=== PATIENT | female | born 1980 | race Caucasian/White ===

== ENCOUNTER 2018-11-21 23:03 | Emergency (ER) | payer OTHER ==
--- NOTE | 2018-11-22 02:23 | EDM.PDOC ---
ED HPI GENERAL MEDICAL PROBLEM - General Chief Complaint: Chest Pain Stated Complaint: [facility] Time Seen by Provider: 11/22/18 02:05 Source of Information: Reports: Patient, Family (), RN Notes Reviewed History Limitations: Reports: No Limitations - History of Present Illness INITIAL COMMENTS - FREE TEXT/NARRATIVE: The patient states that she was sitting on her couch, watching television around 22:00, when she developed central chest tightness, as well as an ache felt to the lateral underside of her left breast, and down both arms. She also describes a sensation felt across her entire anterior chest as a burning and tingling sensation. All of the discomfort came and went. The patient felt lightheaded and dyspneic, as well as tightness in her throat and cheeks. She had no nausea or vomiting. She felt diaphoretic and anxious. She also felt like her legs were made of rubber. All of these sensations were felt at the same time. Total duration for all of them was about 2 hours. The patient states that she took half a milligram of Ativan around 22:00. The patient states that she has had similar, although not as severe, symptoms in the past, due to anxiety. She states that she experiences such symptoms about twice a week for the past 6 years. Her anxiety is treated with daily Lexapro and prn Ativan. The patient's PCP is Yarely Castañeda NP. Chest Pain Score (Numeric/FACES): 3 - Related Data Allergies Allergy/AdvReac Type Severity Reaction Status Date / Time acetaminophen [From [place]] Allergy Hives Verified 11/21/18 23:15 hydrocodone [From [place]] Allergy Hives Verified 11/21/18 23:15 Home Meds: Home Meds Orphenadrine [Norflex] 1 tab PO Q12H PRN #14 tab.er 11/22/18 [Rx] Past Medical History Cardiovascular History: Reports: Hypertension RN FACULTY History: Reports: Psychiatric History: Reports: Anxiety Endocrine/Metabolic History: Reports: Obesity/BMI 30+ - Past Surgical History HEENT Surgical History: Reports: Oral Surgery (wisdom teeth extraction) GI Surgical History: Reports: Cholecystectomy (2011) Female Surgical History: Reports: LEEP Musculoskeletal Surgical History: Reports: Carpal Tunnel Social & Family History - Tobacco Use Smoking Status *Q: Former Smoker Years of Tobacco use: 10 Packs/Tins Daily: 1 Month/Year Tobacco Last Used: Quit 2009 - Caffeine Use Caffeine Use: Reports: Coffee - Alcohol Use Alcohol Use History: Yes Alcohol Use Frequency: Rarely - Recreational Drug Use Recreational Drug Use: Yes Drug Use in Last 12 Months: No Recreational Drug Type: Reports: Marijuana/Hashish (smoked in HS) - Living Situation & Occupation Living situation: Reports: , with Spouse, with Family (4 kids) Occupation: Unemployed ED ROS GENERAL - Review of Systems Review Of Systems: ROS reveals no pertinent complaints other than HPI. ED EXAM, GENERAL - Physical Exam Exam: See Below Exam Limited By: No Limitations General Appearance: Alert, WD/WN, No Apparent Distress, Anxious Eye Exam: Bilateral Eye: EOMI, Normal Inspection Ears: Normal External Exam, Hearing Grossly Normal Nose: Normal Inspection Throat/Mouth: Normal Inspection, Normal Lips, Normal Voice, No Airway Compromise Head: Atraumatic, Normocephalic Neck: Normal Inspection, Full Range of Motion Respiratory/Chest: No Respiratory Distress, Lungs Clear, Normal Breath Sounds, No Accessory Muscle Use Cardiovascular: Normal Peripheral Pulses, Regular Rate, Rhythm, No Gallop, No JVD, No Murmur, No Rub Peripheral Pulses: 4+: Radial (L), Radial (R) GI/Abdominal: Normal Bowel Sounds, Soft, Non-Tender, No Organomegaly, No Distention, No Abnormal Bruit, No Mass, Other (Obese) (Female) Exam: Deferred Rectal (Female) Exam: Deferred Back Exam: Normal Inspection, Full Range of Motion, NT Extremities: Normal Inspection, Normal Range of Motion, No Pedal Edema, Normal Capillary Refill Neurological: Alert, Oriented, CN II-XII Intact, Normal Cognition, No Motor/ Sensory Deficits Psychiatric: Anxious Skin Exam: Warm, Dry, Intact, Normal Color, No Rash EKG INTERPRETATION EKG Date: 11/21/18 Time: 23:21 Rhythm: NSR Rate (Beats/Min): 85 [place]: Normal P-Wave: Enlarged (LAE) QRS: Other (LVH) ST-T: Normal QT: Normal Comparison: NA - No Prior EKG Course - Vital Signs Last Recorded V/S: Last Vital Signs Temp 36.6 C 11/21/18 23:09 Pulse 81 11/21/18 23:09 Resp 16 11/21/18 23:09 BP 195/96 H 11/21/18 23:09 Pulse Ox 99 11/21/18 23:09 Orthostatic Blood Pressure [ 167/110 Standing] Orthostatic Blood Pressure [ 167/92 Supine] - Orders/Labs/Meds Labs: Laboratory Tests 11/21/18 11/21/18 11/21/18 Range/Units 22:30 23:30 23:30 WBC 9.49 (3.98-10.04) K/mm3 RBC 4.62 (3.98-5.22) M/mm3 Hgb 14.4 (11.2-15.7) gm/L Hct 39.6 (34.1-44.9) % MCV 85.7 (79.4-94.8) fl MCH 31.2 (25.6-32.2) pg MCHC 36.4 H (32.2-35.5) g/dl RDW Std Deviation 40.9 (36.4-46.3) fL Plt Count 319 (182-369) K/mm3 MPV 9.2 L (9.4-12.3) fl Neut % (Auto) 50.9 (34.0-71.1) % Lymph % (Auto) 38.4 (19.3-51.7) % [place] % (Auto) 8.1 (4.7-12.5) % Eos % (Auto) 2.1 (0.7-5.8) Baso % (Auto) 0.3 (0.1-1.2) % Neut # (Auto) 4.83 (1.56-6.13) K/mm3 Lymph # (Auto) 3.64 (1.18-3.74) K/mm3 [place] # (Auto) 0.77 H (0.24-0.36) K/mm3 Eos # (Auto) 0.20 (0.04-0.36) K/mm3 Baso # (Auto) 0.03 (0.01-0.08) K/mm3 D-Dimer, Quantitative 0.29 (0.19-0.50) mg/L Sodium 137 (136-145) mEq/L Potassium 3.4 L (3.5-5.1) mEq/L Chloride 101 (98-107) mEq/L Carbon Dioxide 25 (21-32) mEq/L Anion Gap 14.4 (5-15) BUN 14 (7-18) mg/dL Creatinine 0.9 (0.55-1.02) mg/dL Est Cr Clr Drug Dosing 84.03 mL/min Estimated GFR (MDRD) > 60 (>60) mL/min BUN/Creatinine Ratio 15.6 (14-18) Glucose 114 H (74-106) mg/dL Calcium 8.9 (8.5-10.1) mg/dL Total Bilirubin 0.4 (0.2-1.0) mg/dL AST 31 (15-37) U/L ALT 65 H (14-59) U/L Alkaline Phosphatase 81 (46-116) U/L CK-MB (CK-2) 1.3 (0-3.6) ng/ml Troponin I < 0.017 (0.00-0.056) ng/mL Total Protein 7.6 (6.4-8.2) g/dl Albumin 4.3 (3.4-5.0) g/dl Globulin 3.3 gm/dL Albumin/Globulin Ratio 1.3 (1-2) TSH 3rd Generation (0.358-3.74) uIU/mL 11/22/18 Range/Units 02:19 WBC (3.98-10.04) K/mm3 RBC (3.98-5.22) M/mm3 Hgb (11.2-15.7) gm/L Hct (34.1-44.9) % MCV (79.4-94.8) fl MCH (25.6-32.2) pg MCHC (32.2-35.5) g/dl RDW Std Deviation (36.4-46.3) fL Plt Count (182-369) K/mm3 MPV (9.4-12.3) fl Neut % (Auto) (34.0-71.1) % Lymph % (Auto) (19.3-51.7) % [place] % (Auto) (4.7-12.5) % Eos % (Auto) (0.7-5.8) Baso % (Auto) (0.1-1.2) % Neut # (Auto) (1.56-6.13) K/mm3 Lymph # (Auto) (1.18-3.74) K/mm3 [place] # (Auto) (0.24-0.36) K/mm3 Eos # (Auto) (0.04-0.36) K/mm3 Baso # (Auto) (0.01-0.08) K/mm3 D-Dimer, Quantitative (0.19-0.50) mg/L Sodium (136-145) mEq/L Potassium (3.5-5.1) mEq/L Chloride (98-107) mEq/L Carbon Dioxide (21-32) mEq/L Anion Gap (5-15) BUN (7-18) mg/dL Creatinine (0.55-1.02) mg/dL Est Cr Clr Drug Dosing mL/min Estimated GFR (MDRD) (>60) mL/min BUN/Creatinine Ratio (14-18) Glucose (74-106) mg/dL Calcium (8.5-10.1) mg/dL Total Bilirubin (0.2-1.0) mg/dL AST (15-37) U/L ALT (14-59) U/L Alkaline Phosphatase (46-116) U/L CK-MB (CK-2) (0-3.6) ng/ml Troponin I (0.00-0.056) ng/mL Total Protein (6.4-8.2) g/dl Albumin (3.4-5.0) g/dl Globulin gm/dL Albumin/Globulin Ratio (1-2) TSH 3rd Generation 7.309 H (0.358-3.74) uIU/mL Meds: Medications Discontinued Medications Generic Name Dose Route Start Last Admin Trade Name Freq PRN Reason Stop Dose Admin Orphenadrine Citrate 100 mg 11/22/18 03:11 11/22/18 03:30 Norflex PO 11/22/18 03:12 100 mg ONETIME STA Administration - Re-Assessments/Exams Free Text/Narrative Re-Assessment/Exam: 11/22/18 02:21 Portable chest radiograph appears to be grossly normal. The cardiac silhouette is within normal limits. There is no pulmonary vascular congestion. No pleural effusions seen on this AP view. No focal infiltrate. No pneumothorax. Formal read per the Radiologist pending. The patient's history is consistent with her having experienced hyperventilation syndrome earlier tonight, although she is no longer hyperventilating, therefore I cannot prove that that's what her symptoms were due to. The workup that was ordered by the triage nurse, including a CBC, CMP, troponin, CK-MB, portable chest x-ray, and ECG, are all unremarkable. I have added a D-dimer, TSH, and orthostatics to her workup. If these are negative, I will give the patient a diagnosis of hyperventilation syndrome, with the caveat that it is based on suspicion, not proven. 11/22/18 02:31 The patient is not orthostatic. 11/22/18 03:07 The patient's D-dimer is within normal limits. Her TSH is elevated at 7.309, indicating hypothyroidism. 11/22/18 03:12 Test results discussed with the patient and her . As above, the constellation of the patient's symptoms indicate that she was suffering from hyperventilation syndrome earlier. No medical abnormalities were found tonight, other than her TSH being elevated, indicating that she may be hypothyroid. While hyperthyroidism can, in theory, leading to hyperventilation, hypothyroidism cannot. In that regard, I'm recommending that she follow-up with her PCP to not only have her TSH rechecked, but also to consider modification of her current dosage of Lexapro. The patient stated that she is still having difficulty lying back, because it causes her to have left-sided chest pain. She may be suffering from a muscle spasm. She will be started on Norflex, and I will prescribe additional. In addition, I am recommending that she take [id number] ibuprofen. Departure - Departure Time of Disposition: 03:13 Disposition: Home, Self-Care 01 Condition: Good Clinical Impression: Hyperventilation syndrome, Elevated TSH, Muscle spasm - Discharge Information *PRESCRIPTION DRUG MONITORING PROGRAM REVIEWED*: Not Applicable *COPY OF PRESCRIPTION DRUG MONITORING REPORT IN PATIENT ENRIQUE: Not Applicable Prescriptions: Orphenadrine [Norflex] 1 tab PO Q12H PRN #14 tab.er PRN Reason: Muscle Spasm Instructions: Thyroid-Stimulating Hormone Test, Muscle Cramps and Spasms, Easy- to-Read, Hyperventilation Referrals: Yarely Castañeda MD [Primary Care Provider] - Forms: ED Department Discharge Additional Instructions: You were seen in the emergency room for sudden onset symptoms of central chest tightness, with pain felt under her left breast and a burning tingling sensation felt across her chest and down both arms, lightheadedness, shortness of breath, tightness in your throat and cheeks, sweatiness, anxiety, and a feeling of walking on rubber legs. Workup in the ER included blood work, a chest x-ray, positional blood pressure checks, and an ECG. Your TSH was found to be elevated, indicating that you may be hypothyroid. This needs to be rechecked. The remainder of your workup was unremarkable. Based on your history, physical exam, and ER tests, the symptoms that you experienced at home were most likely due to hyperventilation syndrome, due to anxiety. We recommend that you follow-up with your PCP, Yarely Castañeda NP, to not only have your thyroid level rechecked, but to discuss possible modification of your antianxiety medicine, Lexapro. You have been started on the muscle relaxant Norflex. A prescription for Norflex has been [facility] to [facility], located in [facility] across the street from the hospital. Take one tablet of Norflex every 12 hours, starting this evening, Wednesday, 2018, as prescribed. In addition to Norflex, you may also take [id number] ibuprofen, 2-3 tablets (400-600 mg) every 8 hours, with food, as needed for discomfort. If any other problems, please do not hesitate to return to the ER.
[2018-11-22] MEDS ORDERED: Orphenadrine 100 MG Tab.ER PO STA (03:11)
--- NOTE | 2018-11-22 07:20 | CR ---
Chest: Frontal view of the chest was obtained. Comparison: No prior chest x-ray. Heart size and mediastinum are normal. Lungs are clear with no acute parenchymal change. Bony structures are grossly intact. Impression: 1. Nothing acute is seen in frontal chest x-ray. Diagnostic code #1
== END 2018-11-22 03:32 | disposition home or self-care (01) ==
LOC: JD.ED 23:03
DX: F45.8 Other somatoform disorders (principal); M62.838 Other muscle spasm; R94.6 Abnormal results of thyroid function studies; I10 Essential (primary) hypertension; Z88.5 Allergy status to narcotic agent; E66.9 Obesity, unspecified; Z90.49 Acquired absence of other specified parts of digestive tract; Z98.890 Other specified postprocedural states; Z87.891 Personal history of nicotine dependence; Z68.39 Body mass index [BMI] 39.0-39.9, adult
CPT/HCPCS: 36415; 71045; 80053; 82553; 84443; 84484; 85025; 85379; 93005; 99285; A9270; 93010; 99284

== ENCOUNTER 2019-07-13 12:08 | Emergency (ER) | payer BC, OTHER ==
[2019-07-13] MEDS ORDERED: Dextrose 5%-0.9% NaCl 1,000 ML IV SCH (12:30)
[2019-07-13] MEDS ORDERED: Acetaminophen 325 MG Tab PO ONE (12:31)
--- NOTE | 2019-07-13 12:34 | EDM.PDOC ---
ED HPI GENERAL MEDICAL PROBLEM - General Chief Complaint: General Stated Complaint: FEVER/CHILLS/BODYACHE Time Seen by Provider: 07/13/19 12:19 Source of Information: Reports: Patient History Limitations: Reports: No Limitations - History of Present Illness INITIAL COMMENTS - FREE TEXT/NARRATIVE: 39-year-old female presents to the ED with persistent high fever generalized body aches, headache, loss of appetite since July 09. Was seen the same day of illness and influenza screen proved to be negative. She is having marked difficulty controlling the temperature even taking Tylenol and Motrin in alternating fashion all day yesterday. Harsh paroxysmal productive cough is disrupting her sleep. She has no appetite feels very lightheaded dizzy when standing. Has weakness. She did initially have some diarrhea and vomiting the first day of illness. Her who is with her is not ill at all. Does not have a history of asthma or pulmonary problems. Last dose of Motrin was taken about 0 to 30 hours this morning. Onset: Sudden Onset Date: 07/09/19 Duration: Day(s):, Constant (Persistent high fever which is been very difficult to control.), Getting Worse Location: Reports: Generalized (Neurolyse myalgia with headache and paroxysmal cough and loss of appetite.) Quality: Reports: Ache (Neurolysed body aching.) Severity: Moderate (8 out of 10) Improves with: Reports: None Worsens with: Reports: None Context: Reports: Other (Spontaneous occurrence). Denies: Activity, Exercise, Lifting, Sick Contact, Trauma Associated Symptoms: Reports: Chest Pain (Central chest pain from coughing so much. She believes she has had some post ), Cough (tussive emesis as well.), cough w sputum, Diaphoresis (Very little sputum production.), Fever/Chills, Headaches, Loss of Appetite, Malaise, Nausea/Vomiting, Shortness of Breath, Weakness (Post tussive vomiting). 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: Psychiatric History: Reports: Anxiety Endocrine/Metabolic History: Reports: Obesity/BMI 30+ - Past Surgical History HEENT Surgical History: Reports: Oral Surgery GI Surgical History: Reports: Cholecystectomy Female Surgical History: Reports: LEEP Musculoskeletal Surgical History: Reports: Carpal Tunnel Social & Family History - Caffeine Use Caffeine Use: Reports: Coffee - Living Situation & Occupation Living situation: Reports: , with Spouse, with Family (4 kids) Occupation: Unemployed ED ROS GENERAL - Review of Systems Review Of Systems: See Below Constitutional: Reports: Fever, Chills, Malaise, Weakness, Fatigue, Decreased Appetite HEENT: Reports: No Symptoms Respiratory: Reports: Shortness of Breath, Cough. Denies: Sputum, Hemoptysis, Other Cardiovascular: Reports: Chest Pain (Upper central chest pain from coughing), Dyspnea on Exertion, Lightheadedness. Denies: Blood Pressure Problem, Claudication, Edema, Orthopnea Endocrine: Reports: Fatigue GI/Abdominal: Reports: Decreased Appetite, Vomiting (Posttussive emesis on a few occasions). Denies: Abdominal Pain, Difficulty Swallowing, Distension, Flatus, Hematemesis, Hematochezia, Melena : Reports: Other (Decreased urine output i.e. mild frequency with small quantities of urine.) Musculoskeletal: Reports: Muscle Pain Skin: Reports: No Symptoms (Generalized myalgia) Neurological: Reports: Dizziness (Dizziness and lightheadedness with standing), Weakness. Denies: Tremors, Trouble Speaking, Difficulty Walking, Change in Speech Psychiatric: Reports: No Symptoms Hematologic/Lymphatic: Reports: No Symptoms Immunologic: Reports: No Symptoms ED EXAM, GENERAL - Physical Exam Exam: See Below Exam Limited By: No Limitations General Appearance: Alert, WD/WN, Mild Distress, Other (Patient is very warm to palpation. She feels warmer than nurses temperature of 37.3 degrees. Heart rate is 114 at the bedside. Respiratory is 20 with O2 sats of only 94% on room air. BP is elevated at 169/94.) Eye Exam: Bilateral Eye: Normal Inspection Ears: Normal TMs Throat/Mouth: Normal Inspection, Normal Lips, Normal Teeth, Normal Oropharynx, Other Head: Atraumatic, Normocephalic Neck: Normal Inspection, Supple, Non-Tender, Full Range of Motion. No: Carotid Bruit, Lymphadenopathy (L), Lymphadenopathy (R) Respiratory/Chest: No Accessory Muscle Use, Respiratory Distress (Mild tachypnea at rest.), Rhonchi (Faint rhonchi throughout the anterior upper lobe on the right side as well as posterior upper and lower lobes. This is different than on the left side which is clear). No: Lungs Clear, Normal Breath Sounds, Crackles, Rales Cardiovascular: Normal Peripheral Pulses, No Edema, No Gallop, No Murmur, No Rub , Tachycardia (Cardiac arrest 115/min.) Peripheral Pulses: 3+: Carotid (L), Carotid (R), Posterior Tibial (L), Posterior Tibial (R), Dorsalis Pedis (L), Dorsalis Pedis (R) GI/Abdominal: Normal Bowel Sounds, Soft, Non-Tender, No Organomegaly, No Abnormal Bruit, No Mass, Pelvis Stable, Other (Mildly obese.) Back Exam: Normal Inspection, Full Range of Motion. No: CVA Tenderness (L), CVA Tenderness (R) Extremities: Normal Inspection, Normal Range of Motion, Non-Tender, No Pedal Edema Neurological: Alert, Oriented, CN II-XII Intact, Normal Cognition, No Motor/ Sensory Deficits Psychiatric: Normal Affect, Normal Mood Skin Exam: Warm, Dry, Intact, Normal Color, No Rash Course - Vital Signs Last Recorded V/S: Last Vital Signs Temp 37.3 C 07/13/19 12:15 Pulse 114 H 07/13/19 12:15 Resp 20 07/13/19 12:15 BP 169/94 H 07/13/19 12:15 Pulse Ox 94 L 07/13/19 12:15 - Orders/Labs/Meds Labs: Laboratory Tests 07/13/19 07/13/19 07/13/19 Range/Units 12:50 12:50 13:43 WBC 7.51 (3.98-10.04) K/mm3 RBC 4.62 (3.98-5.22) M/mm3 Hgb 14.2 (11.2-15.7) gm/dl Hct 40.9 (34.1-44.9) % MCV 88.5 (79.4-94.8) fl MCH 30.7 (25.6-32.2) pg MCHC 34.7 (32.2-35.5) g/dl RDW Std Deviation 43.0 (36.4-46.3) fL Plt Count 209 D (182-369) K/mm3 MPV 8.9 L (9.4-12.3) fl Neut % (Auto) 83.6 H (34.0-71.1) % Lymph % (Auto) 11.1 L (19.3-51.7) % [place] % (Auto) 4.7 (4.7-12.5) % Eos % (Auto) 0.4 L (0.7-5.8) Baso % (Auto) 0.1 (0.1-1.2) % Neut # (Auto) 6.28 H (1.56-6.13) K/mm3 Lymph # (Auto) 0.83 L (1.18-3.74) K/mm3 [place] # (Auto) 0.35 (0.24-0.36) K/mm3 Eos # (Auto) 0.03 L (0.04-0.36) K/mm3 Baso # (Auto) 0.01 (0.01-0.08) K/mm3 Sodium 138 (136-145) mEq/L Potassium 3.6 (3.5-5.1) mEq/L Chloride 99 (98-107) mEq/L Carbon Dioxide 26 (21-32) mEq/L Anion Gap 16.6 H (5-15) BUN 11 (7-18) mg/dL Creatinine 1.0 (0.55-1.02) mg/dL Est Cr Clr Drug Dosing 74.90 mL/min Estimated GFR (MDRD) > 60 (>60) mL/min BUN/Creatinine Ratio 11.0 L (14-18) Glucose 110 H (74-106) mg/dL Lactic Acid 0.9 (0.4-2.0) mmol/L Calcium 8.8 (8.5-10.1) mg/dL Total Bilirubin 1.0 (0.2-1.0) mg/dL AST 26 (15-37) U/L ALT 45 (14-59) U/L Alkaline Phosphatase 81 (46-116) U/L C-Reactive Protein 19.5 H* (<1.0) mg/dL Total Protein 8.0 (6.4-8.2) g/dl Albumin 3.8 (3.4-5.0) g/dl Globulin 4.2 gm/dL Albumin/Globulin Ratio 0.9 L (1-2) Meds: Medications Discontinued Medications Generic Name Dose Route Start Last Admin Trade Name Tutuq PRN Reason Stop Dose Admin Acetaminophen 975 mg 07/13/19 12:31 07/13/19 13:10 Tylenol PO 07/13/19 12:32 975 mg NOW ONE Administration Hydromorphone HCl 0.5 mg 07/13/19 13:50 07/13/19 14:17 Dilaudid IVPUSH 07/13/19 13:51 0.5 mg ONETIME ONE Administration Hydromorphone HCl 0.5 mg 07/13/19 15:25 07/13/19 16:04 Dilaudid IVPUSH 07/13/19 15:26 0.5 mg ONETIME ONE Administration Dextrose/Sodium Chloride 1,000 mls @ 999 mls/hr 07/13/19 12:30 07/13/19 13:10 Dextrose 5%-Normal Saline IV 999 mls/hr ASDIRECTED FRENCH Administration Levofloxacin/Dextrose 750 mg/ 150 mls @ 100 mls/hr 07/13/19 13:20 07/13/19 13 :53 Premix IV 07/13/19 14:49 100 mls/hr ONETIME ONE Administration Lactated Ringer's 1,000 mls @ 500 mls/hr 07/13/19 14:00 07/13/19 15:14 Ringers, Lactated IV 500 mls/hr .BOLUS FRENCH Administration Ketorolac Tromethamine 30 mg 07/13/19 12:45 07/13/19 13:09 Toradol IVPUSH 30 mg ONETIME FRENCH Administration Metoclopramide HCl 7.5 mg 07/13/19 15:54 07/13/19 16:02 Reglan IVPUSH 07/13/19 15:55 7.5 mg ONETIME ONE Administration Ondansetron HCl 4 mg 07/13/19 12:41 07/13/19 13:08 Zofran IVPUSH 07/13/19 12:42 4 mg ONETIME ONE Administration - Radiology Interpretation Free Text/Narrative:: 39-year-old female presents to the ED due to persistent high fever generalized myalgia, headache, complete loss of appetite since July 09. She was tested for influenza on the day of illness and was reportedly negative. It may have been false negative since it was within the first 24 hours of onset of fever. She has been using Tylenol and Motrin in alternating fashion and having very difficult time controlling her fever. She is now lightheaded and dizzy as she is not been able to eat or drink much for the last 2 days. She does appear clinically dehydrated. Exam also reveals some rhonchi in the right upper lobe and right posterior lobes of the lung. Plan she will be retested for influenza. She will have routine lab work including CBC CMP and a CRP and a chest x-ray 1 view. IV will be D5 normal saline at open. I will give her Zofran 4 mg IV for nausea relief and Toradol 30 mg IV for headache relief. - Re-Assessments/Exams Free Text/Narrative Re-Assessment/Exam: 07/13/19 13:05: X-ray reveals a right lower lobar pneumonia and there is a little bit of infiltrate left lower lobe as well suggesting by bilateral pneumonia. Patient will have to have blood cultures x2 drawn and a lactic acid level before starting antibiotics. Influenza screen is negative. 07/13/19 13:44 White count returned at 7.51 with a left shift of 83.6% neutrophils on the auto differential. Hemoglobin is 14.2 with hematocrit of 40.9. Platelet count is 209,000. Sodium 138 with a potassium of 3.6. Chloride is 99 with a bicarb of 26. Anion gap is slightly elevated at 16.6. BUN is 11 with a creatinine of 1.0. GFR is greater than 60. Glucose is 110. Calcium is 8.8 with a total bilirubin of 1.0. The remainder of the liver function is normal. C-reactive protein is elevated at 19.5. Total protein is 8.0 with an albumin fraction of 3.8 . Plan will be to give her Levaquin 750 mg IV. 07/13/19 13:51 pressure is slowly coming down. She still has quite a bad headache . She is allergic to hydrocodone. I will give her Dilaudid 0.5 mg IV to make sure she is not allergic and we can always give her further medication if needed for headache relief. We will continue IV fluids in the form of Ringer 's lactate at 500 mils an hour. 07/13/19 14:25 Lactic acid is 0.9. Reports her headache is much improved. She does not feel she needs further medication at this time 07/13/19 15:23 Headache is coming back a little. She is pretty well done her IV Levaquin. She will be given Dilaudid 0.5 mg IV now and then will be ready for discharge. Continue Motrin 600 mg every 6 hours and Tylenol in between 1 g every 6 hours if needed for fever relief until the antibiotics become effective. Will be discharged on Levaquin 500 mg once daily at noon daily for 9 more days. Will advise follow-up with her primary care physician in 10 days time. Return to the ED sooner if not improved in the next 48 to 72 hours. We will give her Tessalon Perles 200 mg every 8 hours as needed for relief of cough. 1 tablets provided 07/13/19 15:55 She states she is feeling nauseated at this time and she has not yet had her second dose of Dilaudid. I will give her Reglan 7.5 mg for nausea relief prior to recieving the Dilaudid. 07/13/19 16;10: She is feeling better. She wishes to to try things at home prior to being admitted to hospital. She understands she does have bilateral pneumonia. Is to return to the hospital if she is not markedly improved in the next 48 to 72 hours. Departure - Departure Time of Disposition: 16:10 Disposition: Home, Self-Care 01 Condition: Fair Clinical Impression: Pneumonia Qualifiers: Pneumonia type: due to unspecified organism Laterality: bilateral Lung location : lower lobe of lung Qualified Code(s): J18.9 - Pneumonia, unspecified organism - Discharge Information *PRESCRIPTION DRUG MONITORING PROGRAM REVIEWED*: Not Applicable *COPY OF PRESCRIPTION DRUG MONITORING REPORT IN PATIENT ENRIQUE: Not Applicable Prescriptions: Benzonatate [Tessalon Perle] 200 mg PO Q8H PRN #21 capsule PRN Reason: Cough relief levoFLOXacin [Levaquin] 500 mg PO DAILY #9 tab Instructions: Community-Acquired Pneumonia, Adult Referrals: Yarely Castañeda MD [Primary Care Provider] - Forms: ED Department Discharge Additional Instructions: Evaluation in the emergency room today in regards to persistent high fever and body aches and associated headache with loss of appetite since Wednesday,or blurry . Influenza screen at the clinic was negative and repeat influenza screen in the ED today was also negative. Chest x-ray however reveals bilateral pneumonia worse on the right side particularly in the right lower lobe. There is an early infiltrate in the left lower lobe as well. White count was in the normal range however. You were given IV fluids x2 L to replace fluids. You are given Dilaudid 0.5 mg IV x2 doses for headache relief. Zofran 4 mg IV for nausea relief. Still dose of antibiotic was given in the ED called Levaquin 750 mg. You will need to continue this medication in tablet form 500 mg once daily at noon daily for the next 9 days. Just continuing Motrin 600 mg every 6 hours and check temperature 3 hours after the Motrin dose if. If temperature remains greater than 100.5 degrees suggest 1 g of Tylenol for fever relief. Tentatively fever should break within the next 36 to 48 hours once antibiotics become effective. SPECT improvement in fever and improvement in appetite over the next 48 to 72 hours if not return to the ED or follow-up with personal care physician. The other medication I wrote for home use is Tessalon Perles 200 mg strength this is a tablet cough regime. 1 tablet every 8 hours as needed for severe cough relief. Suggest follow-up with your personal care physician in 10 days time. Sepsis Event Note - Evaluation Sepsis Screening Result: No Definite Risk - Focused Exam Date Exam was Performed: 07/17/19 Time Exam was Performed: 02:58
[2019-07-13] MEDS ORDERED: Ondansetron 4 MG/2 ML SDV IVPUSH ONE (12:41)
[2019-07-13] MEDS ORDERED: Ketorolac 30 MG/ML SDV IVPUSH SCH (12:45)
[2019-07-13] MEDS ORDERED: Levofloxacin/Dextrose 5%-Water 750 MG in Premix Bag 1 BAG IV ONE (13:20)
[2019-07-13] MEDS ORDERED: HYDROmorphone 1 MG/ML Syringe IVPUSH ONE (13:50)
[2019-07-13] MEDS ORDERED: Lactated Ringers 1,000 ML IV SCH (14:00)
--- NOTE | 2019-07-13 14:14 | CR ---
Chest: Portable view of the chest was obtained. Comparison: Prior chest x-ray of 11/21/18. Patchy areas of increased density noted within the left mid to lower lung and within the right lower lung. Heart size and mediastinum are normal. Bony structures are unremarkable. Impression: 1. Findings as noted above most likely representing bilateral pneumonia. Diagnostic code #5 This report was dictated in [place] Standard Time
[2019-07-13] MEDS ORDERED: HYDROmorphone 0.5 MG/0.5 ML Syringe IVPUSH ONE (15:25)
[2019-07-13] MEDS ORDERED: Metoclopramide 10 MG/2 ML SDV IVPUSH ONE (15:54)
== END 2019-07-13 16:17 | disposition home or self-care (01) ==
LOC: JD.ED 12:08
DX: J18.9 Pneumonia, unspecified organism (principal); I10 Essential (primary) hypertension; E66.9 Obesity, unspecified; Z88.8 Allergy status to other drugs, medicaments and biological substances; Z68.41 Body mass index [BMI] 40.0-44.9, adult
CPT/HCPCS: 36415; 71045; 80053; 83605; 85025; 86140; 87040; 87804; 96361; 96365; 96375; 96376; 99284; A9270; J1170; J1885; J1956; J2405; J2765; J7042; J7120

== ENCOUNTER 2023-03-21 19:10 | Emergency (ER) | payer BC ==
[2023-03-21] MEDS ORDERED: Aspirin 81 MG Tab.Chew PO ONE (19:27)
[2023-03-21] MEDS ORDERED: Sodium Chloride 0.9% 10 ML Syringe FLUSH PRN (19:27)
[2023-03-21 19:56] LABS: BASOPHILS ABSOLUTE AUTO 0.1 K/mm3 (0.0-0.2); BASOPHILS PERCENT AUTO 0.5 % (0.0-1.0); EOSINOPHILS ABSOLUTE AUTO 0.1 K/mm3 (0.0-0.4); EOSINOPHILS PERCENT AUTO 1.3 % (0.0-6.0); HEMATOCRIT 38.8 % (37.0-47.0); HEMOGLOBIN 13.8 gm/dl (12.0-16.0); IMMATURE GRAN ABSOLUTE AUTO 0.02 K/mm3 (0.00-0.05); IMMATURE GRAN PERCENT AUTO 0.2 % (0.0-0.4); LYMPHOCYTES ABSOLUTE AUTO 3.7 K/mm3 (1.0-4.8); MEAN CORPUSCULAR HEMOGLOBIN 32.3 pg (28.0-32.0); MEAN CORPUSCULAR HGB CONC 35.6 g/dl (32.0-36.0); MEAN CORPUSCULAR VOLUME 90.9 fl (83.0-99.0); MEAN PLATELET VOLUME 8.6 fl (9.4-12.3); MONOCYTES ABSOLUTE AUTO 0.8 K/mm3 (0.0-0.8); MONOCYTES PERCENT AUTO 8.2 % (0.0-8.0); NEUTROPHILS ABSOLUTE AUTO 5.2 K/mm3 (1.8-7.7); NEUTROPHILS PERCENT AUTO 52.8 % (41.0-71.0); PLATELET COUNT,PLT 306 K/mm3 (150-400); RED BLOOD CELL COUNT 4.27 M/mm3 (4.10-5.30)
[2023-03-21 20:18] LABS: A/G RATIO 1.2 (1-2); ALBUMIN 3.9 g/dl (3.4-5.0); ANION GAP 10.6 (5-15); BILIRUBIN TOTAL 0.5 mg/dL (0.2-1.0); CALCIUM 9.1 mg/dL (8.5-10.1); CREATININE 0.9 mg/dL (0.55-1.02); EST CRCL DRUG DOSING (CG) 79.99 mL/min; MAGNESIUM 1.8 mg/dL (1.8-2.4); POTASSIUM,K 3.6 mEq/L (3.5-5.1); PROTEIN TOTAL,TP 7.1 g/dl (6.4-8.2)
== END 2023-03-21 21:05 | disposition home or self-care (01) ==
LOC: JD.ED 19:10
DX: I10 Essential (primary) hypertension (principal); E66.9 Obesity, unspecified; Z68.41 Body mass index [BMI] 40.0-44.9, adult; Z88.7 Allergy status to serum and vaccine; Z88.5 Allergy status to narcotic agent; Z79.899 Other long term (current) drug therapy
CPT/HCPCS: 36415; 71045; 71045-26; 80053; 83735; 84484; 85025; 93005; 93010; 93246; 99283; 99285

== ENCOUNTER 2024-07-13 20:42 | Emergency (ER) | payer BC | END 2024-07-14 00:05 | disposition home or self-care (01) | LOC: JD.ED 20:42 | DX: I80.01 Phlebitis and thrombophlebitis of superficial vessels of right lower extremity (principal); I10 Essential (primary) hypertension; E66.9 Obesity, unspecified; Z68.42 Body mass index [BMI] 45.0-49.9, adult; Z86.16 Personal history of COVID-19; Z90.49 Acquired absence of other specified parts of digestive tract; Z88.7 Allergy status to serum and vaccine; Z88.5 Allergy status to narcotic agent; Z79.51 Long term (current) use of inhaled steroids; Z79.01 Long term (current) use of anticoagulants; Z79.899 Other long term (current) drug therapy | CPT/HCPCS: 93971-26-RT; 93971-RT; 99283 ==

== ENCOUNTER 2025-03-13 19:25 | Emergency (ER) | payer BC | END 2025-03-13 21:19 | disposition home or self-care (01) | LOC: JD.ED 19:25 | DX: M79.661 Pain in right lower leg (principal); J45.909 Unspecified asthma, uncomplicated; E66.9 Obesity, unspecified; I10 Essential (primary) hypertension; Z88.8 Allergy status to other drugs, medicaments and biological substances; Z88.7 Allergy status to serum and vaccine; Z79.899 Other long term (current) drug therapy; Z86.16 Personal history of COVID-19; Z68.37 Body mass index [BMI] 37.0-37.9, adult | CPT/HCPCS: 93971-26-RT; 93971-RT; 99283 ==